=== PATIENT | female | born 1950 | race Caucasian/White ===

== ENCOUNTER 2020-11-07 21:07 | Emergency (ER) | payer MEDICARE, OTHER ==
[2020-11-08 01:55] LABS: ABSOLUTE LYMPHOCYTES (AUTO) 1.3 10^3/uL (0.5-4.7); ABSOLUTE MONOCYTES (AUTO) 0.3 10^3/uL (0.1-1.4); ABSOLUTE NEUT (AUTO) 1.8 10^3/uL (1.7-8.2); BASOPHILS % (AUTO) 0.6 % (0-2); EOSINOPHILS % (AUTO) 0.6 % (0-6); HEMATOCRIT 33.5 % (36.0-47.0); HEMOGLOBIN 11.9 g/dL (12.0-15.5); MEAN CORPUSCULAR HEMOGLOBIN 32.1 pg (27.0-33.4); MEAN CORPUSCULAR HGB CONC 35.4 g/dL (32.0-36.0); MEAN CORPUSCULAR VOLUME 91 fl (80-97); MONOCYTES % (AUTO) 9.6 % (3-13); PLATELET COUNT 125 10^3/uL (150-450); RED BLOOD COUNT 3.69 10^6/uL (3.72-5.28); RED CELL DISTRIBUTION WIDTH 12.5 % (11.5-14.0); SEGMENTED NEUTROPHILS % (AUTO) 52.2 % (42-78); TOTAL CELLS COUNTED % (AUTO) 100 %; WHITE BLOOD COUNT 3.5 10^3/uL (4.0-10.5)
[2020-11-08 02:00] LABS: APPEARANCE,URINE SLIGHTLY-CLOUDY; BILIRUBIN,URINE NEGATIVE (NEGATIVE); COLOR,URINE YELLOW; GLUCOSE, URINE NEGATIVE (NEGATIVE); KETONES,URINE 20 mg/dL (NEGATIVE); LEUKOCYTE ESTERASE,URINE TRACE (NEGATIVE); NITRITE,URINE POSITIVE (NEGATIVE); PROTEIN,URINE NEGATIVE (NEGATIVE); URINE SPECIFIC GRAVITY 1.011; UROBILINOGEN,URINE NEGATIVE mg/dL (<2.0)
[2020-11-08] MEDS ORDERED: ONDANSETRON HCL INJ/PF 4 MG/2 ML SDV IV ONE (02:01)
[2020-11-08 02:16] LABS: ALBUMIN 3.9 g/dL (3.5-5.0); ALKALINE PHOSPHATASE 65 U/L (38-126); ANION GAP 10 (5-19); ASPARTATE AMINO TRANSFERASE 39 U/L (14-36); BILIRUBIN,DIRECT 0.3 mg/dL (0.0-0.4); BILIRUBIN,TOTAL 0.5 mg/dL (0.2-1.3); BLOOD UREA NITROGEN 19 mg/dL (7-20); CARBON DIOXIDE 25 mmol/L (22-30); CHLORIDE 92 mmol/L (98-107); GLUCOSE 129 mg/dL (75-110); POTASSIUM 4.7 mmol/L (3.6-5.0); TOTAL PROTEIN 6.9 g/dL (6.3-8.2)
--- NOTE | 2020-11-08 02:33 | RADIOLOGY REPORT (SQ) ---
CHEST X-RAY 1 VIEW on 11/08/2020 at 2:01 AM CLINICAL INDICATION: Cough COMPARISON: None FINDINGS: The patient is status post median sternotomy and CABG. Occlusion clip for occlusion of the left atrial appendage is noted. 2-lead left subclavian pacemaker is noted in place. Vascular calcification is noted in the aorta. There are mild bilateral interstitial opacities in the lung bases that may represent minimal edema or atypical pneumonia and differential diagnosis would include viral infections. Lungs are otherwise clear. Cardiac, hilar and mediastinal contours are within normal limits. No bony abnormality is noted. IMPRESSION: Minimal interstitial opacities in the lung bases suggesting minimal edema or atypical pneumonia.
[2020-11-08] MEDS ORDERED: CEFTRIAXONE INJ 1000 MG VIAL IV ONE (02:46)
[2020-11-08] MEDS ORDERED: NORMAL SALINE 500 ML IV ONE (02:47)
[2020-11-08 03:12] LABS: A TYPE INFLUENZA AG NEGATIVE (NEGATIVE); B INFLUENZA AG NEGATIVE (NEGATIVE)
[2020-11-08] MEDS ORDERED: AZITHROMYCIN 250 MG TABLET PO ONE (04:16)
--- NOTE | 2020-11-08 04:24 | ER Document Report ---
ED General - General TRAVEL OUTSIDE OF THE [place] IN LAST 30 DAYS: No <LOUISE MEDINA - Last Filed: 11/08/20 18:22> <JUDSON RAJPUT - Last Filed: 11/12/20 06:38> - General Chief Complaint: Nausea Stated Complaint: NAUSEOUS, NOT FEELING WELL Time Seen by Provider: 11/08/20 01:37 Notes: Patient is a 70-year-old female who presents to the emergency department with a chief complaint of nausea and generally not feeling well. Patient states that she feels not well. Denies any fever. Denies any cough. Denies any contact with anybody who tested positive for COVID-19. Denies any abdominal pain. Denies any vomiting. She is having normal bowel movements. 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 Denies: Hx Hysterectomy, Hx Mastectomy <LOUISE MEDINA - Last Filed: 11/08/20 18:22> Review of Systems <LOUISE MEDINA - Last Filed: 11/08/20 18:22> - Review of Systems Notes: REVIEW OF SYSTEMS: CONSTITUTIONAL : Denies recent illness. Denies recent unintentional weight loss. Denies fever, chills, or sweats. EENT: Denies eye, ear, throat, or mouth pain, discharge, or symptoms. Denies nasal or sinus congestion. CARDIOVASCULAR: Denies chest pain. RESPIRATORY: Denies shortness of breath, cough, congestion, difficulty breathing, or wheezing. GASTROINTESTINAL: See HPI GENITOURINARY: Denies difficulty urinating, burning, blood in urine, urgency or frequency. MUSCULOSKELETAL: Denies neck and back pain. Denies joint pain or swelling. SKIN: Denies rash, itchiness, or lesions HEMATOLOGIC : Denies easy bruising or bleeding. LYMPHATIC: Denies swollen, painful, enlarged glands. NEUROLOGICAL: Denies no numbness or tingling denies weakness. Denies headache. Denies altered mental status. Denies alteration in speech. PSYCHIATRIC: Denies stress, anxiety, alteration in sleep patterns, or depression. (LOUISE MEDINA) Physical Exam <LOUISE MEDINA - Last Filed: 11/08/20 18:22> - Vital signs Vitals: Temp Pulse Resp BP Pulse Ox 98.8 F 88 16 166/73 H 99 11/07/20 21:19 11/07/20 21:19 11/07/20 21:19 11/07/20 21:19 11/07/20 21:19 - Notes Notes: PHYSICAL EXAMINATION: GENERAL: Thin and in no acute distress. HEAD: Atraumatic, normocephalic. EYES: Pupils equal round and reactive to light, extraocular movements intact, sclera anicteric, conjunctiva are normal. ENT: nares patent, oropharynx clear without exudates. Moist mucous membranes. NECK: Normal range of motion, supple without lymphadenopathy LUNGS: Diminished in bilateral bases. HEART: Regular rate and rhythm without murmurs ABDOMEN: Soft, nontender, normoactive bowel sounds. No guarding, no rebound. No masses appreciated. EXTREMITIES: Normal range of motion, no pitting or edema. No cyanosis. NEUROLOGICAL: No focal neurological deficits. Moves all extremities spontaneously and on command. PSYCH: Normal mood, normal affect. SKIN: Warm, Dry, normal turgor, no rashes or lesions noted. (LOUISE MEDINA) Course - Laboratory Results Result Diagrams: 11/08/20 01:24 11/08/20 01:24 Critical Laboratory Results Reviewed: No Critical Results - Radiology Results Critical Radiology Results Reviewed: No Critical Results - Type 2 diabetes <LOUISE MEDINA - Last Filed: 11/08/20 18:22> - Laboratory Results Result Diagrams: 11/08/20 01:24 11/08/20 01:24 <JUDSON RAJPUT - Last Filed: 11/12/20 06:38> - Re-evaluation Re-evalutation: 11/08/20 Hematology is unremarkable, other than anemia of 11.9 hematocrit of 33. This appears to be about the patient's normal 2014. Sodium was 127. I gave the patient a gentle bolus. There was no confusion noted on my physical exam. Based off of this, I advised the patient to follow-up with a primary care provider, as she has not seen one and only goes to his [facility]. Denies any chest pain. Have a low suspicion for an acute NM. Flu test were negative. The patient was evaluated during the global COVID-19 pandemic and that diagnosis was suspected/considered upon their initial presentation. Their evaluation, treatment and testing was consistent with current guidelines for patients who present with complaints or symptoms that may be related to COVID-19. Urinalysis is positive for trace leukocytes and nitrates. There is 3+ bacteria. Urine sent for culture. Spoke with the patient's . Advised him to have her follow-up with the primary care provider, as she does have 2 insurances. He is in agreement with this plan. Please return to the emergency room immediately if you experience any concerning symptoms including high fevers, severe headache, chest pain, difficulty breathing, abdominal pain, slurred speech, numbness or weakness in your arms or legs, or any other symptom that concerns you. (LOUISE MEDINA) - Vital Signs Vital signs: Temp Pulse Resp BP Pulse Ox 97.5 F 88 12 132/56 H 99 11/08/20 04:28 11/07/20 21:19 11/08/20 04:28 11/08/20 04:28 11/08/20 04:28 - Laboratory Results Laboratory Results Interpreted: 11/08/20 11/08/20 11/08/20 01:24 01:24 01:24 WBC 3.5 L RBC 3.69 L Hgb 11.9 L Hct 33.5 L Plt Count 125 L Sodium 127.1 L Chloride 92 L Glucose 129 H AST 39 H Urine Ketones 20 H Urine Nitrite POSITIVE H Ur Leukocyte Esterase TRACE H Urine Ascorbic Acid 40 H COVID-19 (DEENA) 11/08/20 02:31 WBC RBC Hgb Hct Plt Count Sodium Chloride Glucose AST Urine Ketones Urine Nitrite Ur Leukocyte Esterase Urine Ascorbic Acid COVID- (DEENA) DETECTED A Discharge <LOUISE MEDINA - Last Filed: 11/08/20 18:22> <JUDSON RAJPUT - Last Filed: 11/12/20 06:38> - Discharge Clinical Impression: Pneumonia Qualifiers: Pneumonia type: due to unspecified organism Laterality: bilateral Lung location: lower lobe of lung Qualified Code(s): J18.9 - Pneumonia, unspecified organism Urinary tract infection Qualifiers: Urinary tract infection type: site unspecified Hematuria presence: without hematuria Qualified Code(s): N39.0 - Urinary tract infection, site not specified Condition: Stable Disposition: HOME, SELF-CARE Additional Instructions: Your urine shows findings consistent with a urinary tract infection. Please ta ke all the antibiotics as directed even if your symptoms have improved. Please follow-up with your primary care physician as needed. Return to emergency room if you develop fever >101F, persistent vomiting, become lethargic, have severe pain in your sides, or any other symptoms that are concerning to you. You have been diagnosed with a pneumonia. It is very important that you take all of your antibiotics until they are gone even if you are feeling better. Please return to the emergency department immediately if you began having worsening shortness of breath, become confused, have worsening pain, pass out, have persistent vomiting that prevents you from being able to drink fluids for more than 12 hours, or have any other symptoms that are worrisome to you. Please follow-up with your primary care doctor in the next week, as long as your Covid test is negative. As a person under investigation for COVID-19, the [place] Department of Health and Human Services (division on public health) advises you to adhere to the following guidance until your test results are reported to you. If your test result is positive, you will receive additional information from your provider and your local health department at that time. Remain at home until you are cleared by the health provider or public health authorities. Keep a log of visitors to your home, notify any visitors to your home of your isolation status. If you plan to move to a new address or leave the [facility], notify the local health department in your County. Call your Doctor or seek care if you have an urgent medical need. Before seeking medical care, call him to get instructions from the provider before arriving at the medical office, clinic, or hospital. Notify them that you are being tested for the virus (COVID-19) so that arrangements can be made, as necessary, to prevent transmission to others in the healthcare setting. Next, notify the local health department in your county. Prescriptions: Azithromycin [Zithromax 250 mg Tablet] 250 mg PO DAILY #4 tablet
[2020-11-08 04:40] VITALS: BP 132/56
--- NOTE | 2020-11-08 09:01 | EKG REPORT ---
SEVERITY:- ABNORMAL ECG - SINUS RHYTHM LEFT BUNDLE BRANCH BLOCK : Confirmed by: Kayce Jeffrey MD 08-Nov-2020 09:00:42
== END 2020-11-08 04:40 | disposition home or self-care (01) ==
LOC: ER 21:07
DX: U07.1 COVID-19 (principal); J18.9 Pneumonia, unspecified organism; N39.0 Urinary tract infection, site not specified; I25.2 Old myocardial infarction; Z95.0 Presence of cardiac pacemaker; D64.9 Anemia, unspecified
CPT/HCPCS: 93005; 99285; 96361; 96375; 96365; 36415; 87086; 83690; 85025; 87088; 80053; 81001; 84484; 87186; 87804; 71045; 93010; U0003; A9270; J0696; J2405; J7040; C9803; 87635